=== PATIENT | male | born 1965 | race American Indian/Alaskan Native ===

== ENCOUNTER → 2022-02-14 11:22 | Outpatient (BNVA) | payer MEDICAID, SELFPAY | PROVIDERS: PCP Family Medicine; Visit Provider Family Medicine | DX: M79.642 Pain in left hand (principal) | CPT/HCPCS: 73130 ==

== ENCOUNTER 2022-06-12 14:19 | Outpatient (CLI) | payer MEDICAID, SELFPAY ==
--- NOTE | 2022-06-12 | XR_ITS ---
WS: [id number] Exam: XR lumbar spine f/e only [id number] Date/Time of Exam: 06/12/2022 2:35 PM Reason For Exam: BACK PAIN/ comment on spinal stability No fracture or dislocation. No flexion or extension instability. Disc spaces are preserved. Posterior elements are intact. XR/XR lumbar spine f/e only [id number] IMPRESSION: 1. No flexion or extension instability identified. Negative.
== END 2022-06-12 14:20 | disposition home or self-care (01) ==
LOC: RAD 14:22
PROVIDERS: PCP Family Medicine; Visit Provider Nurse Practitioner
DX: M54.51 Vertebrogenic low back pain (principal)
CPT/HCPCS: 72120

== ENCOUNTER 2022-07-20 09:08 | Emergency (ER) | payer MEDICAID, SELFPAY ==
[2022-07-20 09:10] VITALS: BP 120/80; PULSE 65; RESP 18; TEMP 36.8; O2SAT 97
--- NOTE | 2022-07-20 09:36 | ED_ITS ---
HPI - Back Pain/Injury General: Chief Complaint: Back Pain/Injury Stated Complaint: BACK PAIN Time Seen by Provider: 07/20/22 09:12 Source: patient Mode of arrival: EMS History of Present Illness: 56-year-old male presents emergency room complaining of low back pain radiating to his legs bilaterally. He has not had any urinary retention or fecal incontinence. Began a couple of days ago when he tried to reach for something on a shelf in a storage shed felt a sudden sharp pain in his back it is persisted since he tried several [id number] medications with no relief. Patient has a known history of chronic back problems. MD elicited complaint: back pain Pertinent past history: prior back pain Onset (ago): day(s) Timing: constant Severity: moderate Similar Symptoms Previously: Yes Quality: sharp Location: lumbar spine Radiation: left upper leg, right upper leg, left leg below the knee and right leg below the knee Exacerbating factors: sitting upright, walking and coughing/sneezing Relieving factors: immobilization and supine Associated symptoms: Deny abdominal pain, arthralgias, chills, change in bowel habits, difficulty walking, dysuria, fatigue, fecal incontinence, fever(s), hematuria, myalgias, nausea, numbness, syncope, tingling/numbness/burning, urinary frequency, urinary urgency, vomiting or weakness Review of Systems Const: Denies: fever(s), chills or fatigue ENMT: Denies: throat pain, ear or mastoid pain, nasal discharge or nasal congestion Card: Denies: syncope Resp: Denies: dyspnea, productive cough or non-productive cough GI: Denies: abdominal pain, nausea, vomiting, fecal incontinence or change in bowel habits : Denies: dysuria, urinary urgency or hematuria Skin/Breast: Denies: rash or pruritus Neuro: Denies: difficulty walking PFSH ED PFSH: Medical History COPD (chronic obstructive pulmonary disease) History of prostate cancer PTSD (post-traumatic stress disorder) Surgical History Hx of exploratory thoracotomy Hx of prostate biopsy Family History Father Cancer prostate Lung disease Grandfather CAD (coronary artery disease) Mother Chronic kidney disease (CKD) Dementia Stroke Lung disease Denies family history of Diabetes Clotting disorder Psychiatric illness Anesthesia complication Bleeding disorder Hypertension Social History Smoking and tobacco status: former smoker Second hand smoke exposure: No Alcohol intake: current Alcohol intake frequency: few times a month Alcohol type: beer and wine Lives independently: Yes Household members: spouse Marital status: service: Yes (contractor) Current gender identity: Male Special abhinav needs: No Agree to transfusion: Yes Physical Exam Const: GENERAL APPEARANCE: cooperative and comfortable ORIENTATION/CONSCIOUSNESS: Yes awake, Yes oriented to person, Yes oriented to place and Yes oriented to time HENMT: COMMON NORMALS: normocephalic, atraumatic and hearing grossly normal bilaterally HEAD & SCALP: normocephalic and atraumatic Resp: COMMON NORMALS: normal respiratory effort, No retractions, No use of accessory muscles and clear to auscultation bilaterally AUSCULTATION: clear to auscultation bilaterally Cardio: COMMON NORMALS: regular rate, regular rhythm and No murmurs present (Cardio) RATE: regular rate RHYTHM: regular rhythm GI: COMMON NORMALS: Soft to palpation and No hepatosplenomegaly present AUSCULTATION: Yes normoactive bowel sounds PALPATION: Yes Soft to palpation, No Tenderness to palpation present (GI), No Guarding due to palpation present (GI) and Yes No hepatosplenomegaly present : COMMON NORMALS: Yes no CVA tenderness BLADDER/KIDNEY EXAM: Yes no CVA tenderness Back/Pelvis: COMMON NORMALS: no CVA tenderness Extremity: COMMON NORMALS: normal to inspection, capillary refill normal, no clubbing, cyanosis or edema, no calf tenderness and no pedal edema Neuro: SENSORIUM/ORIENTATION: Yes oriented to person, Yes oriented to place and Yes oriented to time Skin: COMMON NORMALS: no rashes or lesions noted GENERAL SKIN EXAM: no rashes or lesions noted Course Vital Signs: Vital signs: Vital Signs Temperature 98.2 F 07/20/22 09:10 Pulse Rate 65 07/20/22 09:10 Respiratory Rate 18 07/20/22 09:10 Blood Pressure 120/80 07/20/22 09:10 Pulse Oximetry 97 07/20/22 09:10 Oxygen Delivery Me thod 07/20/22 09:10 MDM - Back Pain/Injury Medical Decision Making Musculoskeletal low back pain improved with medicines given. No sign of cauda equina syndrome discharge home prednisone taper diclofenac follow-up with pain clinic as previously scheduled. Medical Records I reviewed the patient's medical records. Labs I reviewed the patient's lab results. Discharge Plan Discharge Patient Disposition: Home Clinical Impression: Strain of lumbar region, Lumbar radiculopathy Condition: Stable Prescriptions: New prednisone 20 mg tablet 20 mg PO TID Qty: 15 0RF Rx Instructions: 1 p.o. 3 times daily x3 days, 1 p.o. twice daily x2 days, 1 p.o. daily x2 days diclofenac sodium 75 mg tablet,delayed release (DR/EC) 75 mg PO Q12H PRN (Reason: pain) Qty: 20 0RF Discontinued diclofenac sodium [Voltaren Arthritis Pain] 1 % gel 2 g topical QID Qty: 100 1RF Rx Instructions: apply to wrist No Action aspirin [Adult Low Dose Aspirin] 81 mg tablet,delayed release (DR/EC) 81 mg PO DAILY fluoxetine 20 mg capsule 20 mg PO DAILY omeprazole 40 mg capsule,delayed release(DR/EC) 40 mg PO DAILY sucralfate [Carafate] 1 gram tablet 1 g PO Q6H gabapentin 300 mg capsule 300 mg PO TID atorvastatin 20 mg tablet 20 mg PO DAILY famotidine 20 mg tablet 20 mg PO DAILY tamsulosin 0.4 mg capsule 0.4 mg PO DAILY cyclobenzaprine 10 mg tablet 10 mg PO TID Combivent Respimat 20-100 mcg/actuation mist 1 puff inhalation Q6H PRN methocarbamol 750 mg tablet 750 mg PO TID Qty: 90 0RF ibuprofen 800 mg tablet 800 mg PO Q8H Qty: 30 0RF promethazine-DM 6.25-15 mg/5 mL syrup 5 ml PO Q6H PRN (Reason: cough) Qty: 160 0RF levofloxacin 750 mg tablet 750 mg PO DAILY 7 Days Qty: 7 0RF methylprednisolone [Medrol (Kobe)] 4 mg tablets,dose pack See Rx Instructions PO PER PKG DIR Qty: 21 0RF Rx Instructions: PO PER PKG DIR hydroxyzine HCl 25 mg tablet 50 mg PO .COMPLEX PRN (Reason: itching) Qty: 60 1RF Rx Instructions: Take one to two tablets tid prn itching. Spiriva Respimat 2.5 mcg/actuation mist 2 puff inhalation DAILY Qty: 4 0RF budesonide-formoterol [Symbicort] 160-4.5 mcg/actuation HFA aerosol inhaler See Rx Instructions .ROUTE .COMPLEX Qty: 11 0RF Dose Instruction: Inhale 1 puff by mouth once daily Rx Instructions: Inhale 1 puff by mouth once daily Discharge Orders: Discharge ED (Routine); Ordered 07/20/22 Ordered By: Jorge Abarca Referrals: Clair Gunn MD [Primary Care Provider] - Discharge Diet: Usual diet Discharge Activity: Resume usual activity Patient Instructions: Opioid Safety, Pain Management Activity Restrictions/Additional Instructions: You are seen today for strained your back. Recommend continue steroid taper continue your other medications you previously prescribed by the pain clinic and follow-up with them as scheduled. Coding Level of Care Code ED Audio Visual Specialist for Jim Connor
[2022-07-20] MEDS: orphenadrine 30 mg/mL Inj 2 mL 60 MG IVP (09:47)
[2022-07-20] MEDS: dexamethasone 10 mg/mL INJ IVP (09:47)
[2022-07-20] MEDS: ketorolac 30 mg/mL INJ IVP (09:47)
[2022-07-20] MEDS: morphine 4 mg/mL SDV 1 mL IVP ×2 (09:48→10:44)
== END 2022-07-20 12:23 | disposition home or self-care (01) ==
PROVIDERS: Emergency Provider Family Medicine; PCP Family Medicine
DX: S39.012A Strain of muscle, fascia and tendon of lower back, initial encounter (principal); M54.16 Radiculopathy, lumbar region; Z79.82 Long term (current) use of aspirin; Z87.891 Personal history of nicotine dependence; J44.9 Chronic obstructive pulmonary disease, unspecified; Z85.46 Personal history of malignant neoplasm of prostate; X50.1XXA Overexertion from prolonged static or awkward postures, initial encounter
CPT/HCPCS: 96374; 96375; 96376; 99284; J1100; J1885; J2270; J2360

== ENCOUNTER → 2022-07-26 09:57 | Outpatient (BNVA) | payer MEDICAID, SELFPAY | PROVIDERS: PCP Family Medicine; Visit Provider Family Medicine | DX: I49.9 Cardiac arrhythmia, unspecified (principal) | CPT/HCPCS: 93005 ==

== ENCOUNTER 2022-08-17 06:56 | Emergency (ER) | payer MEDICAID, SELFPAY ==
[2022-08-17 06:59] VITALS: BP 122/84; PULSE 73; RESP 15; TEMP 36.7; O2SAT 93; BMI 20.7
--- NOTE | 2022-08-17 07:15 | ED_ITS ---
Documented by User: GEOR[address] 08/17/22 16:04 HPI - Headache General: Chief Complaint: Headache Stated Complaint: HEADACHE Time Seen by Provider: 08/17/22 06:58 History of Present Illness: Patient is a 56-year-old male who comes to the ED via EMS with a headache. Headache started last night. Patient states that he had a lumbar spinal ablation procedure done on Saturday. He rates his headache currently a 10 out of 10. Headache is generalized and all throughout his head. Headache pain is constant. Denies any neurological symptoms, such as vision changes, numbness/tingling or weakness to 1 side of his body or face. Denies any fevers, nausea, vomiting. Associated symptoms: Deny chest pain, fever(s), nausea, rash or vomiting Review of Systems Const: Denies: fever(s), chills or fatigue Eyes: Denies: change in vision or eye discomfort ENMT: Denies: throat pain, odynophagia, nasal discharge or nasal congestion Card: Denies: chest pain, palpitations, edema, swelling of feet/ankles, dyspnea on exertion or orthopnea Resp: Denies: dyspnea, productive cough or non-productive cough GI: Denies: abdominal pain, nausea, vomiting, diarrhea, constipation or hematochezia : Denies: flank pain, difficulty urinating, dysuria or hematuria Musc: Denies: neck pain, back pain or extremity swelling Skin/Breast: Denies: rash or new lesions Neuro: Reports: headache(s); Denies: numbness in extremities or weakness in extremities PFS ED PFSH: Medical History COPD (chronic obstructive pulmonary disease) History of prostate cancer PTSD (post-traumatic stress disorder) Surgical History Hx of exploratory thoracotomy Hx of prostate biopsy Family History Father Cancer prostate Lung disease Grandfather CAD (coronary artery disease) Mother Chronic kidney disease (CKD) Dementia Stroke Lung disease Denies family history of Diabetes Clotting disorder Psychiatric illness Anesthesia complication Bleeding disorder Hypertension Social History Smoking and tobacco status: former smoker Second hand smoke exposure: No Alcohol intake: current Alcohol intake frequency: few times a month Alcohol type: beer and wine Substance/Drug Use: never Lives independently: Yes Household members: spouse Marital status: service: Yes (contractor) Current gender identity: Male Special abhinav needs: No Agree to transfusion: Yes Physical Exam Const: COMMON NORMALS: no acute distress, patient oriented x3 and alert HENMT: COMMON NORMALS: normocephalic HEAD & SCALP: normocephalic MOUTH: Normal oral and palatal mucosa present THROAT: posterior oropharynx normal and uvula midline Eye: COMMON NORMALS: Equal, round and reactive pupils present and EOMs intact bilaterally GENERAL EYE: appearance normal, both eyes and all related structures PUPIL: Yes Equal, round and reactive pupils present Neck/C-Spine: COMMON NORMALS: supple GENERAL: Yes normal visual inspection Lymph: LYMPHATIC: no lymphadenopathy noted Resp: COMMON NORMALS: normal respiratory effort, No retractions, No use of accessory muscles and clear to auscultation bilaterally AUSCULTATION: clear to auscultation bilaterally Cardio: COMMON NORMALS: regular rate, regular rhythm, S1 normal heart sound present, S2 normal heart sound present, No gallops present (Cardio), No clicks present (Cardio), No murmurs present (Cardio) and Peripheral pulses 2+ throughout RATE: regular rate RHYTHM: regular rhythm HEART SOUNDS: S1 normal heart sound present and S2 normal heart sound present PERIPHERAL PULSES: Peripheral pulses 2+ throughout GI: COMMON NORMALS: Normal to inspection, nondistended, normoactive bowel sounds present, Soft to palpation, non-tender and no masses PALPATION: Yes Soft to palpation : COMMON NORMALS: Yes no CVA tenderness BLADDER/KIDNEY EXAM: Yes no CVA tenderness Back/Pelvis: COMMON NORMALS: no CVA tenderness Extremity: GENERAL: Yes normal exam except as noted Neuro: COMMON NORMALS: patient oriented x3, CN's II-XII intact bilaterally, moves all extremities, no focal motor deficits and no sensory deficits noted SENSORIUM/ORIENTATION: Yes alert SENSORY EXAM: Yes extremities (intact) MOTOR EXAM: 5/5 motor strength present throughout Skin: COMMON NORMALS: no rashes or lesions noted GENERAL SKIN EXAM: no rashes or lesions noted and dry skin Course Vital Signs: Vital signs: Vital Signs Temperature 98.1 F 08/17/22 06:59 Pulse Rate 87 08/17/22 09:24 Respiratory Rate 15 08/17/22 06:59 Blood Pressure 124/81 08/17/22 09:24 Pulse Oximetry 95 08/17/22 09:24 Oxygen Delivery Me thod Room Air 08/17/22 06:59 MDM - Headache Medical Decision Making Patient is a 56-year-old male who comes to the ED via EMS with a headache. Headache started last night. Patient states that he had a lumbar spinal ablation procedure done on Saturday. He rates his headache currently a 10 out of 10. Headache is generalized and all throughout his head. Headache pain is constant. Denies any neurological symptoms, such as vision changes, numbness/tingling or weakness to 1 side of his body or face. Denies any fevers, nausea, vomiting. Vitals are stable. Exam patient is benign and no neurodeficits. Patient was given meds here in the ED and his headache improved greatly. He was rating his headache below 5 out of 10. He was stable for discharge home and diagnosed with postoperative spinal headache. He was told to contact the doctor who performed procedure in the next couple days for reevaluation. Strict return ED precautions given. Patient understood and agreed with plan. Discharge Plan Discharge Patient Disposition: Home Clinical Impression: Postoperative spinal headache Condition: Stable Prescriptions: No Action aspirin [Adult Low Dose Aspirin] 81 mg tablet,delayed release (DR/EC) 81 mg PO DAILY fluoxetine 20 mg capsule 20 mg PO DAILY omeprazole 40 mg capsule,delayed release(DR/EC) 40 mg PO DAILY sucralfate [Carafate] 1 gram tablet 1 g PO Q6H gabapentin 300 mg capsule 300 mg PO TID atorvastatin 20 mg tablet 20 mg PO DAILY famotidine 20 mg tablet 20 mg PO DAILY tamsulosin 0.4 mg capsule 0.4 mg PO DAILY cyclobenzaprine 10 mg tablet 10 mg PO TID Combivent Respimat 20-100 mcg/actuation mist 1 puff inhalation Q6H PRN methocarbamol 750 mg tablet 750 mg PO TID Qty: 90 0RF ibuprofen 800 mg tablet 800 mg PO Q8H Qty: 30 0RF promethazine-DM 6.25-15 mg/5 mL syrup 5 ml PO Q6H PRN (Reason: cough) Qty: 160 0RF amoxicillin 500 mg tablet 500 mg PO Q8H Qty: 21 0RF methylprednisolone [Medrol (Kobe)] 4 mg tablets,dose pack See Rx Instructions PO PER PKG DIR Qty: 21 0RF Rx Instructions: PO PER PKG DIR hydroxyzine HCl 25 mg tablet 50 mg PO .COMPLEX PRN (Reason: itching) Qty: 60 1RF Rx Instructions: Take one to two tablets tid prn itching. Spiriva Respimat 2.5 mcg/actuation mist 2 puff inhalation DAILY Qty: 4 0RF budesonide-formoterol [Symbicort] 160-4.5 mcg/actuation HFA aerosol inhaler See Rx Instructions .ROUTE .COMPLEX Qty: 11 1RF Dose Instruction: Inhale 1 puff by mouth once daily Rx Instructions: Inhale 1 puff by mouth once daily prednisone 20 mg tablet 20 mg PO TID Qty: 15 0RF Rx Instructions: 1 p.o. 3 times daily x3 days, 1 p.o. twice daily x2 days, 1 p.o. daily x2 days diclofenac sodium 75 mg tablet,delayed release (DR/EC) 75 mg PO Q12H PRN (Reason: pain) Qty: 20 0RF Discharge Orders: Discharge ED (Routine); Ordered 08/17/22 Ordered By: Kwame Gary Referrals: Clair Gunn MD [Primary Care Provider] - Discharge Diet: Regular Discharge Activity: Increase activity as tolerated Activity Restrictions/Additional Instructions: Follow-up with medical provider as directed. Contact Dr. Navarro's office and follow-up with them on Saturday if headache persist. Take [id number] ibuprofen or Tylenol to help with headaches. Bed rest, good hydration and increased caffeine intake can help with symptoms. return to the ER or your medical provider if condition worsens. Please read and understand discharge instructions. Thank you for choosing [facility] for your healthcare needs today. Please realize this is an emergency room and that we are providing you with a medical screening exam and this may not be complete and all inclusive of all the testing and or work up that you may need to determine your ailment or severity of your illness. It is very important that you follow up as instructed or that you return to the Emergency Department should you have concerns or if your condition changes or worsens in any way. Coding Level of Care Code ED Protection Specialist for [facility] [employer] Documented by User: Jorge Abarca DO 08/17/22 16:32 HPI - Headache General: Chief Complaint: Headache Stated Complaint: HEADACHE Time Seen by Provider: 08/17/22 06:58 PFSH ED PFSH: Medical History COPD (chronic obstructive pulmonary disease) History of prostate cancer PTSD (post-traumatic stress disorder) Surgical History Hx of exploratory thoracotomy Hx of prostate biopsy Family History Father Cancer prostate Lung disease Grandfather CAD (coronary artery disease) Mother Chronic kidney disease (CKD) Dementia Stroke Lung disease Denies family history of Diabetes Clotting disorder Psychiatric illness Anesthesia complication Bleeding disorder Hypertension Social History Smoking and tobacco status: former smoker Second hand smoke exposure: No Alcohol intake: current Alcohol intake frequency: few times a month Alcohol type: beer and wine Substance/Drug Use: never Lives independently: Yes Household members: spouse Marital status: service: Yes (contractor) Current gender identity: Male Special abhinav needs: No Agree to transfusion: Yes Course Vital Signs: Vital signs: Vital Signs Temperature 98.1 F 08/17/22 06:59 Pulse Rate 87 08/17/22 09:24 Respiratory Rate 15 08/17/22 06:59 Blood Pressure 124/81 08/17/22 09:24 Pulse Oximetry 95 08/17/22 09:24 Oxygen Delivery Me thod Room Air 08/17/22 06:59 MDM - Headache Medical Decision Making Patient is a 56-year-old male who comes to the ED via EMS with a headache. He adache started last night. Patient states that he had a lumbar spinal ablation procedure done on Saturday. He rates his headache currently a 10 out of 10. Headache is generalized and all throughout his head. Headache pain is constant. Denies any neurological symptoms, such as vision changes, numbness/tingling or weakness to 1 side of his body or face. Denies any fevers, nausea, vomiting. Vitals are stable. Exam patient is benign and no neurodeficits. Patient was given meds here in the ED and his headache improved greatly. He was rating his headache below 5 out of 10. He was stable for discharge home and diagnosed with postoperative spinal headache. He was told to contact the doctor who performed procedure in the next couple days for reevaluation. Strict return ED precautions given. Patient understood and agreed with plan. Chart reviewed and patient discussed with midlevel. Agree with assessment and plan. Discharge Plan Discharge Patient Disposition: Home Clinical Impression: Postoperative spinal headache Condition: Stable Prescriptions: No Action aspirin [Adult Low Dose Aspirin] 81 mg tablet,delayed release (DR/EC) 81 mg PO DAILY fluoxetine 20 mg capsule 20 mg PO DAILY omeprazole 40 mg capsule,delayed release(DR/EC) 40 mg PO DAILY sucralfate [Carafate] 1 gram tablet 1 g PO Q6H gabapentin 300 mg capsule 300 mg PO TID atorvastatin 20 mg tablet 20 mg PO DAILY famotidine 20 mg tablet 20 mg PO DAILY tamsulosin 0.4 mg capsule 0.4 mg PO DAILY cyclobenzaprine 10 mg tablet 10 mg PO TID Combivent Respimat 20-100 mcg/actuation mist 1 puff inhalation Q6H PRN methocarbamol 750 mg tablet 750 mg PO TID Qty: 90 0RF ibuprofen 800 mg tablet 800 mg PO Q8H Qty: 30 0RF promethazine-DM 6.25-15 mg/5 mL syrup 5 ml PO Q6H PRN (Reason: cough) Qty: 160 0RF amoxicillin 500 mg tablet 500 mg PO Q8H Qty: 21 0RF methylprednisolone [Medrol (Kobe)] 4 mg tablets,dose pack See Rx Instructions PO PER PKG DIR Qty: 21 0RF Rx Instructions: PO PER PKG DIR hydroxyzine HCl 25 mg tablet 50 mg PO .COMPLEX PRN (Reason: itching) Qty: 60 1RF Rx Instructions: Take one to two tablets tid prn itching. Spiriva Respimat 2.5 mcg/actuation mist 2 puff inhalation DAILY Qty: 4 0RF budesonide-formoterol [Symbicort] 160-4.5 mcg/actuation HFA aerosol inhaler See Rx Instructions .ROUTE .COMPLEX Qty: 11 1RF Dose Instruction: Inhale 1 puff by mouth once daily Rx Instructions: Inhale 1 puff by mouth once daily prednisone 20 mg tablet 20 mg PO TID Qty: 15 0RF Rx Instructions: 1 p.o. 3 times daily x3 days, 1 p.o. twice daily x2 days, 1 p.o. daily x2 days diclofenac sodium 75 mg tablet,delayed release (DR/EC) 75 mg PO Q12H PRN (Reason: pain) Qty: 20 0RF Discharge Orders: Discharge ED (Routine); Ordered 08/17/22 Ordered By: Kwame Gary Referrals: Clair Gunn MD [Primary Care Provider] - Discharge Diet: Regular Discharge Activity: Increase activity as tolerated Activity Restrictions/Additional Instructions: Follow-up with medical provider as directed. Contact Dr. Navarro's office and follow-up with them on Saturday if headache persist. Take [id number] ibuprofen or Tylenol to help with headaches. Bed rest, good hydration and increased caffeine intake can help with symptoms. return to the ER or your medical provider if condition worsens. Please read and understand discharge instructions. Thank you for choosing [facility] for your healthcare needs today. Please realize this is an emergency room and that we are providing you with a medical screening exam and this may not be complete and all inclusive of all the testing and or work up that you may need to determine your ailment or severity of your illness. It is very important that you follow up as instructed or that you return to the Emergency Department should you have concerns or if your condition changes or worsens in any way. Coding Level of Care Code ED Protection Specialist for Jim Connor
[2022-08-17] MEDS: ketorolac 30 mg/mL INJ IVP (07:30)
[2022-08-17] MEDS: sodium chloride 0.9% 1,000 ML 999 ML IV (07:30)
[2022-08-17] MEDS: promethazine 25 mg/mL SDV 1 mL IM (07:30)
[2022-08-17 07:38] VITALS: BP 119/81; O2SAT 96
[2022-08-17 08:05] VITALS: BP 117/74; PULSE 63; O2SAT 96
[2022-08-17] MEDS: HYDROcodone-acetaminophen 7.5-325 mg Tablet 1 TAB PO (08:39)
[2022-08-17 08:40] VITALS: BP 124/87; PULSE 82; O2SAT 97
[2022-08-17 09:24] VITALS: BP 124/81; PULSE 87; O2SAT 95
== END 2022-08-17 09:25 | disposition home or self-care (01) ==
PROVIDERS: Emergency Provider Physician Assistant; PCP Family Medicine
DX: G97.1 Other reaction to spinal and lumbar puncture (principal); Y84.4 Aspiration of fluid as the cause of abnormal reaction of the patient, or of later complication, without mention of misadventure at the time of the procedure
CPT/HCPCS: 96361; 96372; 96374; 99284; J1885; J2550; J7030

== ENCOUNTER → 2022-11-06 11:10 | Outpatient (BNVA) | payer MEDICAID, SELFPAY | PROVIDERS: PCP Family Medicine; Visit Provider Family Medicine | DX: E78.5 Hyperlipidemia, unspecified (principal); Z85.46 Personal history of malignant neoplasm of prostate; J44.9 Chronic obstructive pulmonary disease, unspecified | CPT/HCPCS: 80053; 80061; 84443; 85025; G0103 ==

== ENCOUNTER → 2022-11-14 13:25 | Outpatient (BNVA) | payer MEDICAID, SELFPAY | PROVIDERS: PCP Family Medicine; Visit Provider Internal Medicine Pulmonary Disease | DX: J44.9 Chronic obstructive pulmonary disease, unspecified (principal); I49.9 Cardiac arrhythmia, unspecified; M25.641 Stiffness of right hand, not elsewhere classified; M25.642 Stiffness of left hand, not elsewhere classified; Z87.09 Personal history of other diseases of the respiratory system; E03.9 Hypothyroidism, unspecified; Z87.891 Personal history of nicotine dependence | CPT/HCPCS: 36415; 82785; 84436; 84481; 85651; 86003; 86038; 86140; 86200; 86431 ==

== ENCOUNTER → 2022-11-14 13:25 | Outpatient (BNVA) | payer MEDICAID, SELFPAY | PROVIDERS: PCP Family Medicine; Visit Provider Internal Medicine Pulmonary Disease | DX: J44.9 Chronic obstructive pulmonary disease, unspecified (principal); I49.9 Cardiac arrhythmia, unspecified; M25.641 Stiffness of right hand, not elsewhere classified; M25.642 Stiffness of left hand, not elsewhere classified; Z87.09 Personal history of other diseases of the respiratory system; E03.9 Hypothyroidism, unspecified; Z87.891 Personal history of nicotine dependence | CPT/HCPCS: 99204 ==

== ENCOUNTER 2022-11-19 13:00 | Outpatient (CLI) | payer MEDICAID, SELFPAY ==
--- NOTE | 2022-11-19 13:11 | XRR_ITS ---
PROCEDURE INFORMATION: Exam: XR Right Wrist Exam date and time: 11/19/2022 1:21 PM Age: 57 years old Clinical indication: Pain and injury or trauma; Fall; Blunt trauma (contusions or hematomas); Wrist; Right; Injury date: 11/18/22; Additional info: M25.531 - pain in right wrist TECHNIQUE: Imaging protocol: Radiologic exam of the right wrist. 3image(s) are provided. Views: 3 or more views. COMPARISON: No relevant prior studies available. FINDINGS: Bones/joints: Osseous alignment is maintained.No displaced fracture or dislocation is appreciated. Carpal alignment appears maintained. There is some mild chronic appearing radiocarpal level narrowing. There is some focal sclerosis suggestive of developmental bone island of the 4th digit proximal phalanx. Soft tissues: No radiopaque foreign body or subcutaneous emphysema is appreciated. XR/XR wrist RT min 3V* [id number] IMPRESSION: Osseous alignment is maintained.No fracture or dislocation is appreciated.
== END 2022-11-19 13:01 | disposition home or self-care (01) ==
LOC: RAD 13:03
PROVIDERS: PCP Family Medicine; Visit Provider Family Medicine
DX: M25.531 Pain in right wrist (principal)
CPT/HCPCS: 73110

== ENCOUNTER 2022-12-04 10:05 | Outpatient (CLI) | payer MEDICAID, SELFPAY ==
[2022-12-04 10:30] VITALS: PULSE 67; RESP 18; O2SAT 95
[2022-12-04] MEDS: albuterol 2.5 mg/3 mL Neb INHALATION (10:30)
== END 2022-12-04 10:06 | disposition home or self-care (01) ==
PROVIDERS: PCP Family Medicine; Visit Provider Internal Medicine Pulmonary Disease
DX: J44.9 Chronic obstructive pulmonary disease, unspecified (principal)
CPT/HCPCS: 36415; 82785; 84436; 84481; 85651; 86003; 86038; 86140; 86200; 86431; 94060; 94618; 94729; J7613

== ENCOUNTER → 2022-12-07 09:26 | Outpatient (BNVA) | payer MEDICAID, SELFPAY | PROVIDERS: PCP Family Medicine; Referring Provider Family Medicine; Visit Provider Student in an Organized Health Care Education/Training Program | DX: M65.341 Trigger finger, right ring finger | CPT/HCPCS: 20550; 73130; 99203; J3301; J3490 ==

== ENCOUNTER → 2023-01-16 13:53 | Outpatient (BNVA) | payer MEDICAID, SELFPAY | PROVIDERS: PCP Family Medicine; Visit Provider Internal Medicine Pulmonary Disease | DX: J44.9 Chronic obstructive pulmonary disease, unspecified (principal); I49.9 Cardiac arrhythmia, unspecified; M25.641 Stiffness of right hand, not elsewhere classified; M25.642 Stiffness of left hand, not elsewhere classified; Z87.09 Personal history of other diseases of the respiratory system; Z87.891 Personal history of nicotine dependence; J82.83 Eosinophilic asthma | CPT/HCPCS: 99214 ==

== ENCOUNTER → 2023-02-12 10:25 | Outpatient (BNVA) | payer MEDICAID, SELFPAY | PROVIDERS: PCP Family Medicine; Visit Provider Surgery | DX: K21.9 Gastro-esophageal reflux disease without esophagitis (principal) | CPT/HCPCS: 99204 ==

== ENCOUNTER → 2023-02-19 08:38 | Outpatient (BNVA) | payer MEDICAID, SELFPAY | PROVIDERS: PCP Family Medicine; Visit Provider Physician Assistant | DX: M65.342 Trigger finger, left ring finger | CPT/HCPCS: 99204 ==

== ENCOUNTER 2023-03-20 07:23 | Day surgery (SDC) | payer MEDICAID, SELFPAY ==
[2023-03-20 08:03] VITALS: BP 101/74; PULSE 54; RESP 18; TEMP 36.7; O2SAT 97; BMI 21.1
[2023-03-20] MEDS: sodium chloride 0.9% 1,000 ML 30 ML IV (08:11)
--- NOTE | 2023-03-20 08:20 | ANES.PREANE2 ---
Pre-Anesthetic Assessment Height/Weight: Height 1.85 m Weight 72.575 kg Temp Pulse Resp BP Pulse Ox O2 Del Method 98.0 F 54 L 18 101/74 97 Room Air 03/20/23 08:03 03/20/23 08:03 03/20/23 08:03 03/20/23 08:03 03/20/23 08:03 03/20/23 08:03 Preop Diagnosis: GERD Operation Date: 03/20/23 08:30 Proposed Procedures p EGD 50117,K21.9(Not Applicable) - Javid Fitzgerald DO Familial anesthetic complications: none Last intake: Intake Last Liquid Date 03/19/23 Last Liquid Time 19:00 Last Solid Date 03/19/23 Last Solid Time 19:00 Social No alcohol and No tobacco Exam alert, oriented x 3, clear to auscultation bilaterally and regular rate & rhythm NPO>8hrs Airway Submandibular: within normal limits Cervical ROM: within normal limits Mallampati: Class II Dentition: chipped History/ROS No significant history except as noted Pulmonary Asthma, Chronic Obstructive Pulmonary Disease and Exertional Dyspnea CV/HEM MVP None reported Hepatic None reported GI Gastroesophageal Reflux Disease Metabolic Hyperlipidemia [facility] Osteoarthritis/DJD and Rheumatoid Arthritis Neuropsych None reported Anesthetic Plan ASA status: 2 Anesthesia: Anesthesia Evaluation and MAC Medications/Allergies Home Medications Medication Instructions Recorded Confirmed Last Taken Type aspirin 81 mg tablet,delayed 81 mg PO DAILY 02/14/22 03/20/23 03/19/23 History release (Adult Low Dose Aspirin) fluoxetine 20 mg capsule 20 mg PO DAILY 02/14/22 03/20/23 03/19/23 History gabapentin 300 mg capsule 300 mg PO TID 02/14/22 03/20/23 03/19/23 History diclofenac sodium 1 % topical gel 4 g topical QID #100 grams 11/06/22 03/18/23 03/11/23 Rx (Voltaren Arthritis Pain) ipratropium 20 mcg-albuterol 100 1 puff inhalation Q6H PRN 11/06/22 03/18/23 03/20/23 Rx mcg/actuation mist for inhalation shortness of breath or wheezing #4 (Combivent Respimat) grams tiotropium bromide 2.5 2 puff inhalation DAILY #4 grams 11/06/22 03/20/23 03/19/23 Rx mcg/actuation mist for inhalation (Spiriva Respimat) cetirizine 10 mg tablet 10 mg PO DAILY #30 tabs 12/10/22 03/20/23 03/19/23 Rx atorvastatin 20 mg tablet 20 mg PO DAILY #30 tabs 12/31/22 03/20/23 03/19/23 Rx pantoprazole 40 mg tablet,delayed 40 mg PO BID 6 weeks #84 tabs 02/12/23 03/20/23 03/19/23 Rx release (Protonix) sucralfate 1 gram tablet (Carafate) 1 g PO Q6H #120 tabs 02/21/23 03/20/23 03/19/23 Rx tamsulosin 0.4 mg capsule 0.4 mg PO DAILY #30 caps 02/21/23 03/20/23 03/19/23 Rx budesonide-formoterol HFA 160 1 inh inhalation DAILY 03/18/23 03/20/23 03/19/23 History mcg-4.5 mcg/actuation aerosol inhaler (Symbicort) morphine 15 mg immediate release 15 mg PO .Q4-Q6H PRN Pain 03/18/23 03/20/23 03/19/23 History tablet Allergies Allergy/AdvReac Type Severity Reaction Status Date / Time meperidine [From Demerol] Allergy ADR-Halluci Verified 03/18/23 09:43 nating Current Medications Generic Name Dose Route Start Last Admin Trade Name Freq PRN Reason Stop Dose Admin Sodium Chloride 1,000 mls @ 30 mls/hr 03/20/23 07:30 03/20/23 08:11 Sodium Chloride 0.9% IV 03/21/23 07:29 30 mls/hr .Q24H HUNTER Administration PFSH Anesthesia Medical History COPD (chronic obstructive pulmonary disease) History of prostate cancer Dx in 2021. Will be seeing urology in [place] in Apr. PTSD (post-traumatic stress disorder) Surgical History Hx of exploratory thoracotomy Hx of prostate biopsy Family History Father Cancer prostate Lung disease Grandfather CAD (coronary artery disease) Mother Chronic kidney disease (CKD) Dementia Stroke Lung disease Denies family history of Diabetes Clotting disorder Psychiatric illness Anesthesia complication Bleeding disorder Hypertension Social History Smoking and tobacco/nicotine status: former use of tobacco/nicotine Quit status (tobacco/nicotine): has quit using Year quit tobacco: 1992 Former quit date comment: 2 ppd X 15 years Second hand smoke exposure: No Alcohol intake: current Alcohol intake frequency: few times a month Alcohol type: beer and wine Substance/Drug Use: never Lives independently: Yes Household members: spouse Marital status: service: Yes (contractor) Current gender identity: Male Special abhinav needs: No Agree to transfusion: Yes Data Anesthesia Cardiac Studies: No Data to Display
--- NOTE | 2023-03-20 08:48 | PM.HP ---
Providers/Chief Complaint Primary Care Provider: Steffany Flynn DO Chief Complaint: K21.9 History of Present Illness Javi Inman is a 57 year old male Review of Systems General: Reports: 10 or more systems reviewed and unremarkable except in HPI and below Medications/Allergies Home Medications Medication Instructions Recorded Confirmed Last Taken Type aspirin 81 mg tablet,delayed 81 mg PO DAILY 02/14/22 03/20/23 03/19/23 History release (Adult Low Dose Aspirin) fluoxetine 20 mg capsule 20 mg PO DAILY 02/14/22 03/20/23 03/19/23 History gabapentin 300 mg capsule 300 mg PO TID 02/14/22 03/20/23 03/19/23 History diclofenac sodium 1 % topical gel 4 g topical QID #100 grams 11/06/22 03/18/23 03/11/23 Rx (Voltaren Arthritis Pain) ipratropium 20 mcg-albuterol 100 1 puff inhalation Q6H PRN 11/06/22 03/18/23 03/20/23 Rx mcg/actuation mist for inhalation shortness of breath or wheezing #4 (Combivent Respimat) grams tiotropium bromide 2.5 2 puff inhalation DAILY #4 grams 11/06/22 03/20/23 03/19/23 Rx mcg/actuation mist for inhalation (Spiriva Respimat) cetirizine 10 mg tablet 10 mg PO DAILY #30 tabs 12/10/22 03/20/23 03/19/23 Rx atorvastatin 20 mg tablet 20 mg PO DAILY #30 tabs 12/31/22 03/20/23 03/19/23 Rx pantoprazole 40 mg tablet,delayed 40 mg PO BID 6 weeks #84 tabs 02/12/23 03/20/23 03/19/23 Rx release (Protonix) sucralfate 1 gram tablet (Carafate) 1 g PO Q6H #120 tabs 02/21/23 03/20/23 03/19/23 Rx tamsulosin 0.4 mg capsule 0.4 mg PO DAILY #30 caps 02/21/23 03/20/23 03/19/23 Rx budesonide-formoterol HFA 160 1 inh inhalation DAILY 03/18/23 03/20/23 03/19/23 History mcg-4.5 mcg/actuation aerosol inhaler (Symbicort) morphine 15 mg immediate release 15 mg PO .Q4-Q6H PRN Pain 03/18/23 03/20/23 03/19/23 History tablet Allergies Allergy/AdvReac Type Severity Reaction Status Date / Time meperidine [From Demerol] Allergy ADR-Halluci Verified 03/18/23 09:43 nating PFSH Acute PFSH: Medical History COPD (chronic obstructive pulmonary disease) History of prostate cancer Dx in 2021. Will be seeing urology in [place] in Apr. PTSD (post-traumatic stress disorder) Surgical History Hx of exploratory thoracotomy Hx of prostate biopsy Family History Father Cancer prostate Lung disease Grandfather CAD (coronary artery disease) Mother Chronic kidney disease (CKD) Dementia Stroke Lung disease Denies family history of Diabetes Clotting disorder Psychiatric illness Anesthesia complication Bleeding disorder Hypertension Social History Smoking and tobacco/nicotine status: former use of tobacco/nicotine Quit status (tobacco/nicotine): has quit using Year quit tobacco: 1992 Former quit date comment: 2 ppd X 15 years Second hand smoke exposure: No Alcohol intake: current Alcohol intake frequency: few times a month Alcohol type: beer and wine Substance/Drug Use: never Lives independently: Yes Household members: spouse Marital status: service: Yes (contractor) Current gender identity: Male Special abhinav needs: No Agree to transfusion: Yes Vitals/I&O/Wt Last Vital Signs Temp 98.0 F 03/20/23 08:03 Pulse 54 L 03/20/23 08:03 Resp 18 03/20/23 08:03 BP 101/74 03/20/23 08:03 Pulse Ox 97 03/20/23 08:03 O2 Del Method Room Air 03/20/23 08:03 Weight last 48 hrs Weight 160 lb A&P Assessment and plan (1) GERD (gastroesophageal reflux disease): Plan EGD Attestations Medical Necessity Statement*: home Coding Level of Care Code Acute Code for Chg Fwd Diagnoses GERD (gastroesophageal reflux disease) K21.9
[2023-03-20 09:02] VITALS: BP 89/60; PULSE 74; RESP 14; TEMP 36.3; O2SAT 93
[2023-03-20 09:07] VITALS: BP 93/65; PULSE 70; RESP 18; O2SAT 96
[2023-03-20 09:17] VITALS: BP 92/76; PULSE 72; RESP 18; O2SAT 95
--- NOTE | 2023-03-20 13:29 | ANE.PACU2 ---
Inpatient post-anesthesia follow up: Airway intact: Yes Vital signs: Temperature 97.4 F Pulse Rate 72 Respiratory Rate 18 Blood Pressure 92/76 Pulse Oximetry 95 Oxygen Delivery Me thod Room Air Oxygen Flow Rate Fraction of Inspir ed Oxygen Hydration adequate: Yes Nausea and vomiting: Yes Pain level: 1 Mental status: Baseline
== END 2023-03-20 09:38 | disposition home or self-care (01) ==
PROVIDERS: PCP Family Medicine; Visit Provider Surgery
PROC: 0DJ08ZZ Inspection of Upper Intestinal Tract, Via Natural or Artificial Opening Endoscopic (ICD-10-PCS; CPT 43235; principal; 2023-03-20 08:30)
DX: K21.9 Gastro-esophageal reflux disease without esophagitis (principal); J44.9 Chronic obstructive pulmonary disease, unspecified; Z85.46 Personal history of malignant neoplasm of prostate; Z87.891 Personal history of nicotine dependence; E78.5 Hyperlipidemia, unspecified; Z79.82 Long term (current) use of aspirin
CPT/HCPCS: 43239; 88305; 88342; J2704; J3490; J7030

== ENCOUNTER 2023-04-02 07:44 | Outpatient (CLI) | payer OTHER, MEDICAID, SELFPAY ==
--- NOTE | 2023-04-02 08:15 | US_ITS ---
WS: [id number] RIGHT UPPER QUADRANT ULTRASOUND HISTORY: abdominal pain COMPARISON: None available. Liver: 14.3 cm in length. Normal size liver and echogenicity. No bile duct dilatation or mass. Portal Vein: Normal hepatopetal flow with monophasic waveform. Gallbladder: Normally distended gallbladder with no stones or wall thickening. CBD: 0.5 cm Pancreas: Not visualized. Obscured by bowel gas. Right kidney: 10.4 cm in length. Normal size and echogenicity. No hydronephrosis or mass. Aorta and IVC: Unremarkable abdominal aorta and IVC. No ascites. IMPRESSION: 1. Normal gallbladder. 2. Nonvisualization of the pancreas. 3. Normal bile ducts and normal liver.
== END 2023-04-02 07:45 | disposition home or self-care (01) ==
LOC: RAD 07:44
PROVIDERS: PCP Family Medicine; Visit Provider Surgery
DX: R10.9 Unspecified abdominal pain (principal)
CPT/HCPCS: 76705

== ENCOUNTER → 2023-08-20 14:38 | Outpatient (BNVA) | payer MEDICARE, MEDICAID, SELFPAY | PROVIDERS: PCP Family Medicine; Visit Provider Family Medicine | DX: Z85.46 Personal history of malignant neoplasm of prostate (principal) | CPT/HCPCS: 84153 ==

== ENCOUNTER → 2023-10-02 09:01 | Outpatient (BNVA) | payer MEDICARE, MEDICAID, SELFPAY | PROVIDERS: PCP Family Medicine; Visit Provider Internal Medicine Pulmonary Disease | DX: J44.9 Chronic obstructive pulmonary disease, unspecified (principal); M25.641 Stiffness of right hand, not elsewhere classified; M25.642 Stiffness of left hand, not elsewhere classified; Z87.09 Personal history of other diseases of the respiratory system; Z87.891 Personal history of nicotine dependence | CPT/HCPCS: 99214 ==

== ENCOUNTER → 2023-11-05 09:50 | Outpatient (BNVA) | payer MEDICARE, MEDICAID, SELFPAY | PROVIDERS: PCP Family Medicine; Visit Provider Student in an Organized Health Care Education/Training Program | DX: M65.341 Trigger finger, right ring finger; M79.642 Pain in left hand | CPT/HCPCS: 73130; 99214 ==

== ENCOUNTER 2023-11-28 08:17 | Day surgery (SDC) | payer MEDICARE, MEDICAID, SELFPAY ==
[2023-11-28 08:48] VITALS: BMI 23.1
[2023-11-28 08:59] VITALS: BP 99/71; PULSE 61; RESP 18; TEMP 36.7; O2SAT 96
[2023-11-28] MEDS: acetaminophen 1,000 MG/100 ML PIGGYBACK 400 MG IV (09:00)
[2023-11-28] MEDS: ketorolac 30 mg/mL INJ IVP (09:02)
--- NOTE | 2023-11-28 09:08 | P.ANESASSM_ITS ---
Pre-Anesthetic Assessment Height/Weight: Height 1.85 m Weight 79.379 kg Temp Pulse Resp BP Pulse Ox O2 Del Method 98.0 F 61 18 99/71 96 Room Air 11/28/23 08:59 11/28/23 08:59 11/28/23 08:59 11/28/23 08:59 11/28/23 08:59 11/28/23 08:59 Preop Diagnosis: Right ring finger trigger Operation Date: 11/28/23 09:40 Proposed Procedures p Trigger Finger Release right ring finger(Right) - Kevin Abdirahman, DO Familial anesthetic complications: None Was Beta Alonso taken within 24 hours: N/A Was Clonidine taken within 24 hours: N/A Last intake: Intake Last Liquid Date 11/27/23 Last Liquid Time 16:00 Last Solid Date 11/27/23 Last Solid Time 16:00 Social Tobacco (dips) and No alcohol Exam alert, oriented x 3, clear to auscultation bilaterally and regular rate & rhythm Airway Mallampati: Class II Dentition: other (missing) Pulmonary Asthma and Chronic Obstructive Pulmonary Disease GI Gastroesophageal Reflux Disease Metabolic Hyperlipidemia [facility] Rheumatoid Arthritis Anesthetic Plan ASA status: 3 Anesthesia: MAC Risk of > 500 ml blood loss (7ml/kg in children): No Medications/Allergies Home Medications Medication Instructions Recorded Confirmed Last Taken Type aspirin 81 mg tablet,delayed 81 mg PO DAILY 02/14/22 11/28/23 11/26/23 History release (Adult Low Dose Aspirin) diclofenac sodium 1 % topical gel 4 g topical QID #100 grams 11/06/22 11/27/23 03/11/23 Rx (Voltaren Arthritis Pain) cetirizine 10 mg tablet 10 mg PO DAILY #30 tabs 12/10/22 11/27/23 11/26/23 Rx morphine 15 mg immediate release 15 mg PO .Q4-Q6H PRN Pain 03/18/23 11/27/23 11/27/23 History tablet budesonide-formoterol HFA 160 1 inh inhalation DAILY #10.2 grams 06/06/23 11/27/23 11/27/23 Rx mcg-4.5 mcg/actuation aerosol inhaler (Symbicort) tiotropium bromide 2.5 2 puff inhalation DAILY #4 grams 06/06/23 11/27/23 11/27/23 Rx mcg/actuation mist for inhalation (Spiriva Respimat) Heavy Duty Walker #1 ea 08/06/23 11/21/23 Unknown Rx oxybutynin chloride 5 mg 5 mg PO DAILY 08/06/23 11/27/23 11/26/23 History tablet,extended release 24 hr tamsulosin 0.4 mg capsule 0.8 mg PO DAILY 08/06/23 11/27/23 11/26/23 History atorvastatin 20 mg tablet 20 mg PO DAILY #30 tabs 08/23/23 11/27/23 11/26/23 Rx pantoprazole 40 mg tablet,delayed 40 mg PO DAILY 90 days #90 tabs 09/05/23 11/27/23 11/27/23 Rx release (Protonix) gabapentin 300 mg capsule 300 mg PO TID #270 caps 10/01/23 11/27/23 11/27/23 Rx fluoxetine 20 mg capsule 20 mg PO DAILY #90 caps 10/18/23 11/27/23 11/27/23 Rx ipratropium 20 mcg-albuterol 100 1 puff inhalation Q6H PRN 11/07/23 11/27/23 11/26/23 Rx mcg/actuation mist for inhalation shortness of breath or wheezing #4 (Combivent Respimat) grams Allergies Allergy/AdvReac Type Severity Reaction Status Date / Time meperidine [From Demerol] Allergy ADR-Halluci Verified 11/27/23 14:55 [facility] Anesthesia Medical History (Updated 11/21/23 @ 12:04 by Lian Tripp) COPD (chronic obstructive pulmonary disease) History of prostate cancer Dx in 2021. Will be seeing urology in [place] in Apr. PTSD (post-traumatic stress disorder) Surgical History Hx of exploratory thoracotomy Hx of prostate biopsy Family History Father Cancer prostate Lung disease Grandfather CAD (coronary artery disease) Mother Chronic kidney disease (CKD) Dementia Stroke Lung disease Denies family history of Diabetes Clotting disorder Psychiatric illness Anesthesia complication Bleeding disorder Hypertension Social History Smoking and tobacco/nicotine status: former use of tobacco/nicotine Quit status (tobacco/nicotine): has quit using Year quit tobacco: 1992 Former quit date comment: 2 ppd X 15 years Second hand smoke exposure: No Alcohol intake: current Alcohol intake frequency: few times a month Alcohol type: beer and wine Substance/Drug Use: never Lives independently: Yes Household members: spouse Marital status: service: Yes (contractor) Current gender identity: Male Special abhinav needs: No Agree to transfusion: Yes Data Anesthesia Cardiac Studies: No Data to Display
--- NOTE | 2023-11-28 09:40 | W.PM.OPSUD ---
Surgery/Procedure H&P Update DATE OF PROCEDURE: November 28, 2023 DATE H&P PERFORMED: 11/05/23 H&P UPDATE INFORMATION: I have reviewed H&P completed within last 30 days, I have examined patient prior to procedure and No changes to prior documentation PREOP DIAGNOSIS: Right ring finger trigger PRIMARY INDICATION FOR PROCEDURE: Right ring finger trigger PLANNED PROCEDURE: Operation Date: 11/28/23 09:40 Proposed Procedures p Trigger Finger Release right ring finger(Right) - Kevin Gary DO
[2023-11-28] MEDS: sodium chloride 0.9% 1,000 ML 30 ML IV (10:10)
[2023-11-28] MEDS: ceFAZolin 2,000 MG in sodium chloride 0.9% (plus) 50 ML 100 MG IV (10:20)
[2023-11-28] MEDS: lidocaine 1% INJ 10 mL (per mL) 5 ML INJECTION (10:43)
[2023-11-28] MEDS: ROPivacaine 0.5% SDV 30 mL 25 MG INJECTION (10:43)
--- NOTE | 2023-11-28 10:50 | P.BOP_ITS ---
Date of Procedure: [11/28/2023] Surgeon: Kevin Gary DO Power Plant Supervisor(s): None Procedure(s) performed: Right ring finger trigger release Findings of the procedure(s): Patient was found to have right ring finger trigger underwent procedure as planned without issues or complication Estimated blood loss: 1 mL Specimen(s) removed: None Post-operative diagnosis: Right ring finger trigger
--- NOTE | 2023-11-28 10:51 | P.OP_ITS ---
Operative Report Date of procedure: November 28, 2023 Surgeon: Kevin Gary DO Procedure: Preoperative diagnosis: Right ring finger trigger Post-op diagnosis: Same Procedure done: Right ring finger?trigger?release Surgeon: Kevin Gary DO Estimated blood loss: 1cc Tourniquet time 6mins Complications: None Condition: stable Disposition: same day Brief History: Patient's been seen and worked up in the outpatient setting and findings consistent with preoperative diagnosis of right ring finger?trigger.? He is failed conservative treatment.? Continues to have mechanical locking and catching.? Severe pain as well.? We talked about treatment options nonoperative versus operative intervention.? ?Patient understands the risk benefits complication alternatives of surgical nonsurgical treatment options.? Understanding his risks with surgery he elects proceed with surgical intervention.? Consent obtained in the office.? Here today to proceed with surgical intervention.? All questions answered. Procedure: Patient was seen and evaluated in the preoperative holding area.? Consent was reviewed and signed with patient.? Seen evaluated by Anesthesia Department.? Once cleared for surgery was brought back to the operative suite.? Placed in supine position on the OR table all bony prominences well-padded patient properly secured to the bed.? Patient's right arm was then placed to the armboard.? A nonsterile tourniquet applied to the right upper arm.? Patient's right upper extremity was then prepped and draped in standard orthopedic fashion.? Final timeout performed.? Patient received appropriate preoperative antibiotics. Esmarch tourniquet was used exsanguinate the right upper extremity tourniquet insufflated to 250 mmHg. Under sterile aseptic technique local digital block was performed to the right ring finger.? Once appropriately anesthetized a standard horizontal incision was made centering over the A1 rin following patient's flexor crease.? Sharp scalpel incision was made only through skin and then switched to Littler dissection scissors and spread longitudinally directly over the flexor tendon sheath. Patient did have thickened palmar fascia early signs of Dupuytren's n oted this to spread longitudinally and then transected to mobilize and visualize the flexor tendon sheath I then mobilized both radially and ulnarly and Kasdan retractors were used and placed by my equity sales assistant to protect neurovascular bundle.? Next I visualized the A1 rin and this was incised with a scalpel.? I then switched to dissection scissors and?released the A1 rin both proximally as well as distally to its entirety.? Significant tendon sheath fluid was noted consistent with inflammation.? Mild fraying of the flexor tendons noted but no tear.? At this point I utilized a rag nail and pulled the tendons FDS and FDP out of the incision and no?triggering was noted.? I then had anesthesia wake up the patient and patient was able to actively flex and extend with no?triggering.? This point thorough irrigation was performed.? Tourniquet deflated hemostasis satisfactory with bipolar.? I then subsequently closed the incision with interrupted nylon suture.? Xeroform 4 x 4's, Kerlix and an Jose wrap was applied for a bulky soft dressing.? Patient was then subsequently awakened from anesthesia and taken to PACU in stable condition tolerated procedure without issues. Disposition: Patient taken back in stable condition recovering well.? Patient will receive appropriate discharge instruction as well as pain medication postoperatively.? Patient to follow-up with me in the office in 2 weeks for repeat evaluation and incision check.? Patient understands that any questions or concerns and contact the office.? All questions answered.
[2023-11-28 11:00] VITALS: BP 117/71; PULSE 47; RESP 18; TEMP 36.2; O2SAT 98
[2023-11-28 11:05] VITALS: BP 126/70; PULSE 48; RESP 18; O2SAT 99
[2023-11-28 11:10] VITALS: BP 127/76; PULSE 47; RESP 17; O2SAT 97
[2023-11-28 11:15] VITALS: BP 122/73; PULSE 51; RESP 17; TEMP 36.6; O2SAT 97
[2023-11-28 11:22] VITALS: BP 121/71; PULSE 51; RESP 18; O2SAT 96
[2023-11-28] MEDS: TRAMadol 50 mg Tablet PO (11:46)
--- NOTE | 2023-11-28 12:15 | ANE.PACU2 ---
Inpatient post-anesthesia follow up: Airway intact: Yes Vital signs: Temperature 97.8 F Pulse Rate 51 Respiratory Rate 18 Blood Pressure 121/71 Pulse Oximetry 96 Oxygen Delivery Me thod Room Air Oxygen Flow Rate 6 Fraction of Inspir ed Oxygen Hydration adequate: Yes Nausea and vomiting: No Pain level: 1 Mental status: Baseline
== END 2023-11-28 12:13 | disposition home or self-care (01) ==
PROVIDERS: PCP Family Medicine Adult Medicine; Visit Provider Student in an Organized Health Care Education/Training Program
PROC: (CPT 26055; principal; 2023-11-28 09:30)
DX: M65.341 Trigger finger, right ring finger (principal); J44.9 Chronic obstructive pulmonary disease, unspecified; K21.9 Gastro-esophageal reflux disease without esophagitis; E78.5 Hyperlipidemia, unspecified; M06.9 Rheumatoid arthritis, unspecified; Z79.82 Long term (current) use of aspirin; Z85.46 Personal history of malignant neoplasm of prostate; Z87.891 Personal history of nicotine dependence
CPT/HCPCS: 26055; J0131; J0690; J1885; J2704; J2795; J7030

== ENCOUNTER 2023-12-03 12:06 | Emergency (ER) | payer MEDICARE, MEDICAID, SELFPAY ==
[2023-12-03 12:12] VITALS: BP 103/70; PULSE 64; RESP 16; TEMP 36.6; O2SAT 96; BMI 22.4
--- NOTE | 2023-12-03 12:44 | ED_ITS ---
HPI - Skin/Abscess/Foreign Bdy General: Chief complaint: Skin/Abscess/Foreign Body Stated complaint: Surgery on hand--has developed a rash Time Seen by Provider: 12/03/23 12:28 Source: patient Mode of arrival: ambulatory Limitations: no limitations History of Present Illness: Patient is a nice 58-year-old male who presents to ED today with complaint of a. A current rash to his right wrist and forearm. Patient states approximately 4 days ago he underwent a trigger finger release by Dr. Gary. Patient states he has been doing fine following the surgery and states his sutures and surgical wound to the palmar aspect of his right hand appears clean and well healing. He has not noticed any swelling or redness to the arm or incision site. He is not having any pain. MD complaint: rash Onset (ago): day(s) Tetanus up to date: yes Location: LUE Severity: mild Quality: pruritic Relieving factors: none Exacerbating factors: none Context: other (recent surgery) Associated symptoms: Reports no associated symptoms; Deny chills or fever(s) Treatments prior to arrival: none Related Data Home Medications Medication Instructions Recorded Confirmed aspirin 81 mg tablet,delayed 81 mg PO DAILY 02/14/22 11/28/23 release (Adult Low Dose Aspirin) morphine 15 mg immediate release 15 mg PO .Q4-Q6H PRN Pain 03/18/23 11/27/23 tablet oxybutynin chloride 5 mg 5 mg PO DAILY 08/06/23 11/27/23 tablet,extended release 24 hr tamsulosin 0.4 mg capsule 0.8 mg PO DAILY 08/06/23 11/27/23 Previous Rx's Medication Instructions Recorded diclofenac sodium 1 % topical gel 4 g topical QID #100 grams 11/06/22 (Voltaren Arthritis Pain) cetirizine 10 mg tablet 10 mg PO DAILY #30 tabs 12/10/22 budesonide-formoterol HFA 160 1 inh inhalation DAILY #10.2 grams 06/06/23 mcg-4.5 mcg/actuation aerosol inhaler (Symbicort) tiotropium bromide 2.5 2 puff inhalation DAILY #4 grams 06/06/23 mcg/actuation mist for inhalation (Spiriva Respimat) Heavy Duty Walker #1 ea 08/06/23 atorvastatin 20 mg tablet 20 mg PO DAILY #30 tabs 08/23/23 pantoprazole 40 mg tablet,delayed 40 mg PO DAILY 90 days #90 tabs 09/05/23 release (Protonix) gabapentin 300 mg capsule 300 mg PO TID #270 caps 10/01/23 fluoxetine 20 mg capsule 20 mg PO DAILY #90 caps 10/18/23 ipratropium 20 mcg-albuterol 100 1 puff inhalation Q6H PRN 11/07/23 mcg/actuation mist for inhalation shortness of breath or wheezing #4 (Combivent Respimat) grams tramadol 50 mg tablet 50 mg PO Q6H PRN pain #20 tabs 11/28/23 Allergies Allergy/AdvReac Type Severity Reaction Status Date / Time meperidine [From Demerol] Allergy ADR-Halluci Verified 11/27/23 14:55 nating Review of Systems Const: Denies: fever(s), chills, body aches, fatigue or malaise Card: Denies: chest pain Resp: Denies: dyspnea Musc: Denies: extremity pain, extremity swelling, joint pain or joint swelling Skin/Breast: Reports: rash and pruritus Neuro: Denies: headache(s) PFSH ED PFSH: Medical History COPD (chronic obstructive pulmonary disease) History of prostate cancer Dx in 2021. Will be seeing urology in [place] in Apr. PTSD (post-traumatic stress disorder) Surgical History Hx of exploratory thoracotomy Hx of prostate biopsy Family History Father Cancer prostate Lung disease Grandfather CAD (coronary artery disease) Mother Chronic kidney disease (CKD) Dementia Stroke Lung disease Denies family history of Diabetes Clotting disorder Psychiatric illness Anesthesia complication Bleeding disorder Hypertension Social History Smoking and tobacco/nicotine status: former use of tobacco/nicotine Quit status (tobacco/nicotine): has quit using Year quit tobacco: 1992 Former quit date comment: 2 ppd X 15 years Second hand smoke exposure: No Alcohol intake: current Alcohol intake frequency: few times a month Alcohol type: beer and wine Substance/Drug Use: never Lives independently: Yes Household members: spouse Marital status: service: Yes (contractor) Current gender identity: Male Special abhinav needs: No Agree to transfusion: Yes Physical Exam Const: COMMON NORMALS: no acute distress, average body habitus, no limitations, healthy appearing and well nourished Extremity: COMMON NORMALS: full ROM and capillary refill normal GENERAL: Yes normal exam except as noted RIGHT UPPER EXTREMITY: Yes lower arm, Yes wrist and Yes hand & digits OTHER: surgical incision to R palmar hand appears clean and well healing; no redness/edema/discharge/streaking; he has a mild erythematous macular rash to wrist/forearm with excoriation present Neuro: COMMON NORMALS: moves all extremities, no focal motor deficits and no sensory deficits noted Skin: NARRATIVE SKIN EXAM: see above Course Vital Signs: Vital signs: Vital Signs Temperature 97.9 F 12/03/23 12:12 Pulse Rate 64 12/03/23 12:12 Respiratory Rate 16 12/03/23 12:12 Blood Pressure 103/70 12/03/23 12:12 Pulse Oximetry 96 12/03/23 12:12 Oxygen Delivery Me thod Room Air 12/03/23 12:12 MDM - Skin/Abscess/Foreign Bdy Medicial Decision Making Suspect this could be something allergic possibly a chlorhexidine/betadine prep during surgery. Surgical site appears very well. Recommend topical Benadryl and Hydrocortisone cream. He can follow-up with Dr. Gary as scheduled. Return precautions discussed. Medical Records I reviewed the patient's medical records. No radiology studies performed this visit Discharge Plan Discharge Patient Disposition: Home Clinical Impression: Skin rash Condition: Stable Prescriptions: No Action aspirin [Adult Low Dose Aspirin] 81 mg tablet,delayed release (DR/EC) 81 mg PO DAILY diclofenac sodium [Voltaren Arthritis Pain] 1 % gel 4 g topical QID Qty: 100 3RF Rx Instructions: apply to shoulders, neck, hands. tamsulosin 0.4 mg capsule 0.8 mg PO DAILY oxybutynin chloride 5 mg tablet extended release 24hr 5 mg PO DAILY (DME) Heavy Duty Walker See Rx Instructions .Route .MEDSUPPLY Qty: 1 0RF Rx Instructions: As directed Combivent Respimat 20-100 mcg/actuation mist 1 puff inhalation Q6H PRN (Reason: shortness of breath or wheezing) Qty: 4 3RF cetirizine 10 mg tablet 10 mg PO DAILY Qty: 30 4RF Rx Instructions: Must try 120 days before insurance will cover Montelukast budesonide-formoterol [Symbicort] 160-4.5 mcg/actuation HFA aerosol inhaler 1 inh inhalation DAILY Qty: 10.2 0RF Rx Instructions: Inhale 1 puff by mouth once daily Spiriva Respimat 2.5 mcg/actuation mist 2 puff inhalation DAILY Qty: 4 3RF atorvastatin 20 mg tablet 20 mg PO DAILY Qty: 30 3RF pantoprazole [Protonix] 40 mg tablet,delayed release (DR/EC) 40 mg PO DAILY 90 Days Qty: 90 0RF gabapentin 300 mg capsule 300 mg PO TID Qty: 270 1RF fluoxetine 20 mg capsule 20 mg PO DAILY Qty: 90 0RF morphine 15 mg tablet 15 mg PO .Q4-Q6H PRN (Reason: Pain) tramadol 50 mg tablet 50 mg PO Q6H PRN (Reason: pain) Qty: 20 0RF Discharge Orders: Discharge ED (Routine); Ordered 12/03/23 Ordered By: Luana Garcia Referrals: Markos Greene MD [Primary Care Provider] - Activity Restrictions/Additional Instructions: As we discussed I would start applying topical Benadryl and/or Hydrocortisone cream to help with your itching. I suspect this rash should resolve on its own. You can continue to follow-up with Dr. Gary as scheduled. Coding Level of Care Code ED [employer] for [facility]
== END 2023-12-03 12:58 | disposition home or self-care (01) ==
PROVIDERS: Emergency Provider Physician Assistant; PCP Family Medicine Adult Medicine
DX: R21 Rash and other nonspecific skin eruption (principal); Z79.82 Long term (current) use of aspirin; Z87.891 Personal history of nicotine dependence; J44.9 Chronic obstructive pulmonary disease, unspecified; Z85.46 Personal history of malignant neoplasm of prostate
CPT/HCPCS: 99282

== ENCOUNTER → 2023-12-13 08:58 | Outpatient (BNVA) | payer MEDICARE, MEDICAID, SELFPAY | PROVIDERS: PCP Family Medicine Adult Medicine; Visit Provider Physician Assistant | DX: Z98.890 Other specified postprocedural states (principal) | CPT/HCPCS: 99024 ==

== ENCOUNTER 2024-02-15 20:20 | Emergency (ER) | payer MEDICARE, MEDICAID, SELFPAY ==
[2024-02-15 20:24] VITALS: BP 112/68; PULSE 84; RESP 18; TEMP 36.6; O2SAT 96; BMI 23.2
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
--- NOTE | 2024-02-15 21:50 | XRR_ITS ---
PROCEDURE INFORMATION: Exam: XR Right Elbow Exam date and time: 02/15/2024 10:01 PM Age: 58 years old Clinical indication: Right; Patient HX: RT elbow pain after fall TECHNIQUE: Imaging protocol: Radiologic exam of the right elbow. Views: 3 or more views. COMPARISON: No relevant prior studies available. FINDINGS: Bones/joints: Normal. Soft tissues: Normal. XR/XR elbow RT min 3V* [id number] IMPRESSION: No acute findings.
[2024-02-15 21:53] VITALS: BP 108/58; PULSE 69; RESP 18; O2SAT 93
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
[2024-02-15 22:51] VITALS: RESP 16; O2SAT 94
[2024-02-15] MEDS: oxyCODONE-APAP 5-325 mg Tablet 2 TAB PO (22:51)
[2024-02-15 23:32] VITALS: BP 103/56; PULSE 57; RESP 18; O2SAT 95
== END 2024-02-15 23:27 | disposition home or self-care (01) ==
PROVIDERS: Emergency Provider Emergency Medicine; PCP Family Medicine Adult Medicine
DX: S06.0X0A Concussion without loss of consciousness, initial encounter (principal); S50.01XA Contusion of right elbow, initial encounter; Y04.2XXA Assault by strike against or bumped into by another person, initial encounter
CPT/HCPCS: 70450; 73080; 99284

== ENCOUNTER 2024-02-23 22:02 | Emergency (ER) | payer MEDICARE, MEDICAID, SELFPAY ==
[2024-02-23 22:07] VITALS: BP 111/63; PULSE 66; RESP 17; TEMP 36.5; O2SAT 95; BMI 22.4
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
[2024-02-24] MEDS: ketorolac 30 mg/mL INJ IM (00:46)
[2024-02-24] MEDS: HYDROmorphone 1 mg/mL INJ 1 mL IM (00:46)
== END 2024-02-24 01:22 | disposition home or self-care (01) ==
PROVIDERS: Emergency Provider Nurse Practitioner Family; PCP Family Medicine Adult Medicine
DX: M54.2 Cervicalgia (principal); M54.50 Low back pain, unspecified; Z79.82 Long term (current) use of aspirin; Z87.891 Personal history of nicotine dependence; J44.9 Chronic obstructive pulmonary disease, unspecified
CPT/HCPCS: 72125; 72131; 96372; 99284; J1171; J1885

== ENCOUNTER 2024-03-02 22:45 | Emergency (ER) | payer MEDICARE, MEDICAID, SELFPAY ==
[2024-03-02 22:45] VITALS: BP 109/63; PULSE 93; RESP 16; TEMP 36.7; O2SAT 93; BMI 23.1
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
[2024-03-02 23:42] VITALS: RESP 18; O2SAT 97
[2024-03-02] MEDS: dexamethasone 10 mg/mL INJ IM (23:42)
[2024-03-02] MEDS: orphenadrine 30 mg/mL Inj 2 mL 60 MG IM (23:42)
[2024-03-02 23:45] VITALS: BP 100/59; RESP 18; O2SAT 96
[2024-03-02 23:50] VITALS: BP 100/59; PULSE 58; RESP 16; O2SAT 96
--- NOTE | 2024-03-03 12:43 | DCPLANNER ---
Message sent to Ortho for follow up on Chronic back pain.
== END 2024-03-02 23:54 | disposition home or self-care (01) ==
PROVIDERS: Emergency Provider Physician Assistant; PCP Family Medicine Adult Medicine
DX: M54.59 Other low back pain (principal); Z79.82 Long term (current) use of aspirin; Z87.891 Personal history of nicotine dependence; J44.9 Chronic obstructive pulmonary disease, unspecified
CPT/HCPCS: 96372; 99284; J1100; J2360

== ENCOUNTER → 2024-03-10 14:23 | Outpatient (BNVA) | payer MEDICARE, MEDICAID, SELFPAY | PROVIDERS: PCP Family Medicine Adult Medicine; Visit Provider Orthopaedic Surgery | DX: M54.41 Lumbago with sciatica, right side (principal); M54.42 Lumbago with sciatica, left side; G89.29 Other chronic pain | CPT/HCPCS: 72110; 99204 ==

== ENCOUNTER 2024-03-24 13:41 | Outpatient (CLI) | payer MEDICARE, MEDICAID, SELFPAY ==
--- NOTE | 2024-03-24 13:45 | MR_ITS ---
WS: [id number] MRI LUMBAR SPINE NONCONTRAST HISTORY: Back pain COMPARISON: None available. TECHNIQUE: Sagittal and axial multisequence imaging is submitted. Normal lumbar alignment with no compression fractures or marrow edema. Disc spaces and vertebral body heights are well-preserved. Conus terminates normally at L1-2 disc level. L1-L2: Normal. L2-L3: Normal. L3-L4: Very mild annular disc bulging. Shallow annular fissure centrally. No stenosis L4-L5: Mild annular disc bulging with a tiny central annular tear. Minimal encroachment upon the suba rticular recesses. Small amount of fluid in the facet joints. L5-S1: Mild disc bulging. Small annular fissure centrally. No stenosis. Paravertebral soft tissues are negative. MR/MR lumbar spine wo con* [id number] IMPRESSION: 1. No marrow edema or lumbar spine fracture. 2. No significant central, subarticular recess or foraminal stenosis. 3. Small central annular fissures at L3-4, L4-5 and L5-S1.
== END 2024-03-24 13:42 | disposition home or self-care (01) ==
LOC: RAD 13:42
PROVIDERS: Visit Provider Orthopaedic Surgery
DX: M54.9 Dorsalgia, unspecified (principal)
CPT/HCPCS: 72148

== ENCOUNTER → 2024-04-07 10:11 | Outpatient (BNVA) | payer MEDICARE, MEDICAID, SELFPAY | PROVIDERS: Visit Provider Internal Medicine Rheumatology | DX: R76.8 Other specified abnormal immunological findings in serum (principal); Z79.899 Other long term (current) drug therapy; M06.00 Rheumatoid arthritis without rheumatoid factor, unspecified site; M79.641 Pain in right hand; M79.642 Pain in left hand | CPT/HCPCS: 36415; 73130; 73630; 80076; 82565; 85025; 85651; 86140; 86200; 86480; 86704; 86803; 87340; 99204 ==

== ENCOUNTER → 2024-05-25 14:46 | Outpatient (BNVA) | payer MEDICARE, MEDICAID, SELFPAY | PROVIDERS: Visit Provider Nurse Practitioner Family | DX: L21.8 Other seborrheic dermatitis (principal); D48.5 Neoplasm of uncertain behavior of skin; L30.9 Dermatitis, unspecified | CPT/HCPCS: 11102; 99204 ==

== ENCOUNTER → 2024-07-10 08:40 | Outpatient (BNVA) | payer MEDICARE, MEDICAID, SELFPAY | PROVIDERS: Visit Provider Nurse Practitioner Family | DX: L58.0 Acute radiodermatitis (principal); L57.8 Other skin changes due to chronic exposure to nonionizing radiation | CPT/HCPCS: 99214 ==

== ENCOUNTER → 2024-09-24 13:55 | Outpatient (BNVA) | payer MEDICARE, MEDICAID, SELFPAY | PROVIDERS: Visit Provider Orthopaedic Surgery | DX: M54.9 Dorsalgia, unspecified (principal) | CPT/HCPCS: 99213 ==